=== PATIENT | female | born 1985 | race African-American/Black ===

== ENCOUNTER 2018-05-22 14:01 | Observation (INO) | payer MEDICAID ==
[~2018-05-22] VITALS: Ht 162.6 cm; Wt 71.7 kg
[2018-05-22] MEDS ORDERED: LACTATED RINGERS 1,000 ML IV SCH (14:30)
[2018-05-22] MEDS ORDERED: PNV1TABL76 PO (14:32)
[2018-05-22 15:04] LABS: CLARITY URINE CLEAR (CLEAR); COLOR URINE YELLOW (YELLOW); KETONES URINE NEGATIVE (NEGATIVE); LEUKOCYTE ESTERASE URINE NEGATIVE (NEGATIVE); NITRITE URINE NEGATIVE (NEGATIVE); OCCULT BLOOD URINE NEGATIVE (NEGATIVE); PH URINE 5.5 (4.5-8.0); PROTEIN URINE NEGATIVE (NEGATIVE); SPECIFIC GRAVITY URINE 1.014 (1.005-1.030)
[2018-05-22 15:10] LABS: CHLORIDE 106 mEq/L (98-107)
[2018-05-22 15:12] LABS: BASOPHILS % 0.7 % (0.0-2.0); EOSINOPHILS % 0.7 % (0.0-5.0); HEMATOCRIT. 34.8 % (36.0-48.0); HEMOGLOBIN. 11.5 g/dL (12.0-16.0); LYMPHOCYTES % 14.4 % (20.0-50.0); MEAN CORPUSCULAR HEMOGLOBIN 24.1 pg (28.0-32.0); MEAN PLATELET VOLUME 8.6 fl (7.4-10.4); MONOCYTES % 6.9 % (2.0-8.0); NEUTROPHILS % 77.3 % (40.0-76.0); PLATELET 248 x1000/uL (130-400); RED BLOOD CELL COUNT 4.77 mill/uL (4.2-5.4); RED CELL DISTRIBUTION WIDTH 17.2 % (11.6-14.6)
[2018-05-22 15:14] LABS: D-DIMER 2.45 mg/L FEU (<0.50); INR 0.9; PARTIAL THROMBOPLASTIN TIME 25.8 sec (23.4-31.0); PROTHROMBIN TIME 9.7 sec (9.4-11.6)
== END 2018-05-22 16:10 | disposition home or self-care (01) ==
LOC: L&D 14:01
PROVIDERS: ADMIT Specialist; ATTEND Specialist
DX: O62.9 Abnormality of forces of labor, unspecified (principal); O48.0 Post-term pregnancy; Z3A.40 40 weeks gestation of pregnancy
CPT/HCPCS: 36415; 80053; 81003; 84550; 85025; 85379; 85384; 85610; 85730; 99281; G0378; J7120; 96360

== ENCOUNTER 2018-05-22 17:41 | Inpatient (IN) | payer MEDICAID ==
[~2018-05-22] VITALS: Ht 162.6 cm; Wt 71.7 kg
[~2018-05-22 17:41] MED LIST: PNV1TABL76 PO
[2018-05-22] MEDS ORDERED: LACTATED RINGERS 1,000 ML IV SCH (17:46)
[2018-05-22] MEDS ORDERED: DEXT 5%/LR + PITOCIN 20UNITS/L 1,000 ML IV SCH (17:46)
[2018-05-22] MEDS ORDERED: FENTANYL CITRATE/PF 50MCG/ML 2ML VIAL ONE (17:55)
[2018-05-22] MEDS ORDERED: BUPIVACAINE HCL/NS/PF EPIDURAL 100 ML EP ONE (17:56)
[2018-05-22] MEDS ORDERED: BUPIVACAINE HCL/PF 0.25% (2.5MG/ML) 10ML ONE (17:56)
[2018-05-22] MEDS ORDERED: NALOXONE HCL 0.4 MG/ML 1ML VIAL IM PRN (18:00)
[2018-05-22] MEDS ORDERED: METHYLERGONOVINE MALEATE 0.2 MG/ML IM PRN (18:00)
[2018-05-22] MEDS ORDERED: LIDOCAINE HCL/PF 1% 10 MG/ML 30ML VIAL INFIL PRN (18:00)
[2018-05-22] MEDS ORDERED: CARBOPROST TROMETHAMINE 250 MCG/ML AMPUL IM PRN (18:00)
[2018-05-22] MEDS ORDERED: PENICILLIN G POTASSIUM 5 MMU in DEXT 5% WATER 100 ML IV NR (18:00)
[2018-05-22] MEDS ORDERED: MISOPROSTOL 100MCG TABLET VG PRN (18:00)
[2018-05-22] MEDS ORDERED: BENZOCAINE/LANOLIN/ALOE VERA SPRAY TOP PRN (18:30)
[2018-05-22] MEDS ORDERED: HEMORRHOIDAL SUPP PR PRN (18:30)
[2018-05-22] MEDS ORDERED: DIPHENHYDRAMINE 25MG CAPSULE PO PRN (18:30)
[2018-05-22] MEDS ORDERED: TETANUS, DIPHTHERIA, PERTUSSIS VAC/PF 0.5ML (>7YR OLD) IM ONE (18:30)
[2018-05-22] MEDS ORDERED: ACETAMINOPHEN WITH CODEINE 300/30MG TABLET PO PRN (18:30)
[2018-05-22] MEDS ORDERED: BISACODYL 10MG SUPP PR PRN (18:30)
[2018-05-22] MEDS ORDERED: GLYCERIN/WITCH HAZEL LEAF MEDICATED PAD TOP PRN (18:30)
[2018-05-22] MEDS ORDERED: RHO(D) IMMUNE GLOBULIN 300 MCG/SYR IM PRN (18:30)
[2018-05-22 18:58] LABS: HEPATITIS B SURFACE ANTIGEN NEGATIVE; RUBELLA IGG 140.5 IU/mL (4.99-10)
[2018-05-22] MEDS: DEXT 5%/LR + PITOCIN 20UNITS/L 1,000 ML IV SCH ×2 (19:14→19:59)
[2018-05-22] MEDS: DOCUSATE SODIUM 100MG CAPSULE PO SCH (21:00)
[2018-05-22 21:15] VITALS: BP 107/71
[2018-05-22 22:00] VITALS: BP 121/77
[2018-05-22] MEDS ORDERED: PENICILLIN G POTASSIUM 2.5 MMU in DEXTROSE 5% WATER 50 ML IV SCH (22:00)
[2018-05-22 22:33] LABS: *AMPHETAMINES SCREEN URINE NEGATIVE (NEGATIVE); *BARBITURATES SCREEN URINE NEGATIVE (NEGATIVE); *BENZODIAZEPINES SCREEN URINE NEGATIVE (NEGATIVE); *COCAINE SCREEN URINE NEGATIVE (NEGATIVE)
[2018-05-22 22:35] LABS: CANNABINOID URINE SCREEN NEGATIVE (NEGATIVE); METHADONE URINE SCREEN NEGATIVE (NEGATIVE); OPIATES URINE SCREEN NEGATIVE (NEGATIVE); PHENCYCLIDINE URINE SCREEN NEGATIVE (NEGATIVE)
[2018-05-22] MEDS: SIMETHICONE 80MG TABLET CHEW PO SCH (23:00)
[2018-05-23] VITALS: BP 115/76
[2018-05-23 06:00] VITALS: BP 109/72
[2018-05-23 07:42] VITALS: BP 104/60
[2018-05-23] MEDS: PRENATAL VIT/FE FUMARATE/FA TABLET PO SCH (08:32)
[2018-05-23] MEDS: IBUPROFEN 400MG TABLET PO PRN ×2 (08:32→17:49)
[2018-05-23] MEDS: SIMETHICONE 80MG TABLET CHEW PO SCH ×4 (08:32→22:30)
[2018-05-23 09:11] LABS: BASOPHILS % 0.4 % (0.0-2.0); EOSINOPHILS % 0.2 % (0.0-5.0); HEMATOCRIT. 29.6 % (36.0-48.0); HEMOGLOBIN. 9.7 g/dL (12.0-16.0); LYMPHOCYTES % 10.8 % (20.0-50.0); MEAN CORPUSCULAR HEMOGLOBIN 24.3 pg (28.0-32.0); MEAN CORPUSCULAR VOLUME 73.7 fL (81.0-99.0); MEAN PLATELET VOLUME 8.8 fl (7.4-10.4); MONOCYTES % 5.9 % (2.0-8.0); NEUTROPHILS % 82.7 % (40.0-76.0); PLATELET 185 x1000/uL (130-400); RED BLOOD CELL COUNT 4.01 mill/uL (4.2-5.4); RED CELL DISTRIBUTION WIDTH 17.5 % (11.6-14.6)
[2018-05-23] MEDS: ACETAMINOPHEN WITH CODEINE 300/30MG TABLET PO PRN ×2 (12:51→22:31)
[2018-05-23] MEDS: FERROUS SULFATE 325MG TABLET PO SCH ×2 (12:51→17:49)
[2018-05-23 16:16] VITALS: BP 124/77
[2018-05-23 19:10] VITALS: BP 115/72
[2018-05-23] MEDS: DOCUSATE SODIUM 100MG CAPSULE PO SCH (22:30)
[2018-05-23 23:38] VITALS: BP 118/76
[2018-05-24 08:00] VITALS: BP 120/72
[2018-05-24] MEDS: FERROUS SULFATE 325MG TABLET PO SCH (09:04)
[2018-05-24] MEDS: SIMETHICONE 80MG TABLET CHEW PO SCH (09:05)
[2018-05-24] MEDS: PRENATAL VIT/FE FUMARATE/FA TABLET PO SCH (09:05)
[2018-05-24] MEDS: IBUPROFEN 400MG TABLET PO PRN (09:28)
[2018-05-24] MEDS ORDERED: MEDROXYPROGESTERONE ACETATE 150MG/ML VIAL IM NR (14:00)
== END 2018-05-24 14:35 | disposition home or self-care (01) | DRG 560 ==
LOC: L&D 17:41 → OBSVTOIN 17:41 → 7EST PP/OB 21:05
PROVIDERS: ADMIT Specialist; ATTEND Specialist
PROC: 3E0R3BZ Introduction of Anesthetic Agent into Spinal Canal, Percutaneous Approach (ICD-10-PCS; 2018-05-22)
PROC: 00HU33Z Insertion of Infusion Device into Spinal Canal, Percutaneous Approach (ICD-10-PCS; 2018-05-22)
PROC: 10E0XZZ Delivery of Products of Conception, External Approach (ICD-10-PCS; principal; 2018-05-22 18:04)
DX: O99.02 Anemia complicating childbirth (principal); D64.9 Anemia, unspecified; Z37.0 Single live birth; Z3A.40 40 weeks gestation of pregnancy
CPT/HCPCS: 36415; 80305; 85025; 86592; 86703; 86762; 86850; 86900; 87340; 90715; J1050; J2540; J2590; J3010; J3490; J7060